=== PATIENT | female | born 1955 | race Caucasian/White ===

== ENCOUNTER → 2024-05-10 10:48 | Outpatient (REF) | payer MEDICARE, BC, SELFPAY | LOC: WDC 10:48 | PROVIDERS: ATTENDING PHYSICIAN Obstetrics & Gynecology; FAMILY PHYSICIAN Family Medicine | DX: Z12.31 Encounter for screening mammogram for malignant neoplasm of breast (principal) | CPT/HCPCS: 77063; 77067 ==

== ENCOUNTER → 2025-06-27 11:12 | Outpatient (REF) | payer MEDICARE, BC, SELFPAY | LOC: WDC 11:12 | PROVIDERS: ATTENDING PHYSICIAN Obstetrics & Gynecology; FAMILY PHYSICIAN Family Medicine | DX: Z12.31 Encounter for screening mammogram for malignant neoplasm of breast (principal) | CPT/HCPCS: 77063; 77067 ==

== ENCOUNTER → 2025-07-11 07:34 | Outpatient (REF) | payer MEDICARE, BC, SELFPAY | LOC: RAD 07:34 | PROVIDERS: ATTENDING PHYSICIAN Internal Medicine; FAMILY PHYSICIAN Family Medicine | DX: M81.0 Age-related osteoporosis without current pathological fracture (principal) | CPT/HCPCS: 77080; 77081 ==

== ENCOUNTER → 2025-08-25 09:02 | Outpatient (REF) | payer MEDICARE, BC, SELFPAY | LOC: RAD 09:02 | PROVIDERS: ATTENDING PHYSICIAN Internal Medicine Cardiovascular Disease; FAMILY PHYSICIAN Family Medicine | DX: I10 Essential (primary) hypertension (principal); Z91.89 Other specified personal risk factors, not elsewhere classified | CPT/HCPCS: 75571 ==